=== PATIENT | female | born 1940 | race Caucasian/White ===

== ENCOUNTER 2024-11-10 17:32 | Inpatient (IN) ==
[2024-11-10] MEDS ORDERED: IOPAMIDOL 100 ML BOTTLE IV ONE (17:33)
[2024-11-10 18:31] LABS: Basophils # (Auto) 0.05 K/mcL (0.00-0.30); Basophils % (Auto) 0.6 % (0.0-2.0); Eosinophils # (Auto) 0.69 K/mcL (0.00-0.70); Eosinophils % (Auto) 7.6 % (0.0-7.0); Hematocrit 38.7 % (34.1-44.9); Hemoglobin 12.5 g/dL (11.2-15.7); Lymphocytes # (Auto) 1.53 K/mcL (1.50-4.80); Lymphocytes % (Auto) 16.9 % (15.5-49.0); Mean Corpuscular HGB Conc 32.3 g/dL (31.0-36.0); Monocytes # (Auto) 1.03 K/mcL (0.10-0.90); Monocytes % (Auto) 11.3 % (1.0-12.0); Neutrophils % (Auto) 63.3 % (38.0-78.0); Platelet Count 278 K/mcL (140-440); RBC 4.53 M/mcL (3.59-5.38); WBC 9.1 K/mcL (4.5-11.0)
[2024-11-10 18:38] LABS: Bilirubin,Urine Small mg/dL (Negative); Color,Urine Yellow; Glucose,Urine (UA) 100 mg/dL (Negative); Ketones,Urine Trace mg/dL (Negative); Leukocyte Esterase,Urine Trace /uL (Negative); Mucus,Urine Few /hpf; PH,Urine 6.0 (5.0-9.0); Protein,Urine 100 mg/dL (Negative); Specific Gravity,Urine 1.015 (1.000-1.035); Urobilinogen,Urine Normal
[2024-11-10 18:50] LABS: ALT/SGPT 10 U/L (<40); AST/SGOT 16 U/L (<32); Albumin 3.8 gm/dL (3.2-5.2); Albumin/Globulin Ratio 1.2 (1.0-2.3); Alkaline Phosphatase 85 U/L (39-117); Anion Gap 11.0 (8.0-16.0); Bilirubin,Total 0.3 mg/dL (0.1-1.0); Blood Urea Nitrogen 18 mg/dL (8-23); Calcium 9.2 mg/dL (8.6-10.4); Carbon Dioxide 22 mmol/L (22-30); Chloride 105 mmol/L (96-108); Globulin 3.1 gm/dL (2.2-3.7); Glucose 99 mg/dL (70-105); Potassium 3.5 mmol/L (3.3-5.1); Sodium 138 mmol/L (133-145)
[2024-11-10] MEDS: 0.9 % SODIUM CHLORIDE 1,000 ML IV ONE (18:53)
[2024-11-10] MEDS: cefTRIAXone 1 GM VIAL IV ONE (19:31)
[2024-11-10 19:35] LABS: Thyroid Stimulating Hormone 2.74 uIU/mL (0.27-5.01)
[2024-11-10] MEDS: AZITHROMYCIN 500 MG in 0.9 % SODIUM CHLORIDE 250 ML IV SCH (19:35)
[2024-11-10 21:05] LABS: C-Reactive Protein 5.86 mg/dL (0.03-0.80)
[2024-11-10 21:18] LABS: RBC Morphology NORMAL (Normal)
[2024-11-10] MEDS ORDERED: POTASSIUM CHLORIDE 40 MEQ in DEXTROSE 5% IN WATER 500 ML IV PRN (22:40)
[2024-11-10] MEDS ORDERED: POLYETHYLENE GLYCOL 3350 17 GM PACKET PO PRN (22:40)
[2024-11-10] MEDS ORDERED: ACETAMINOPHEN 325 MG TABLET PO PRN (22:40)
[2024-11-10] MEDS ORDERED: SENNOSIDES 1 TABLET PO PRN (22:40)
[2024-11-10] MEDS ORDERED: ONDANSETRON 4 MG/2 ML VIAL IV PRN (22:40)
[2024-11-10] MEDS ORDERED: IPRATROPIUM/ALBUTEROL 3 ML AMPUL.NEB NEB PRN (22:40)
[2024-11-10] MEDS ORDERED: POTASSIUM CHLORIDE 20 MEQ TABLET PO PRN ×2 (22:40)
[2024-11-10] MEDS ORDERED: METOCLOPRAMIDE 10 MG/2 ML VIAL IV PRN (22:40)
[2024-11-10] MEDS ORDERED: MAGNESIUM SULFATE 2 GM/50 ML BAG IV PRN (22:40)
[2024-11-11 00:02] LABS: Carcinoembryonic Antigen 4.4 ng/mL (<3.4)
[2024-11-11] MEDS: cefTRIAXone 1 GM VIAL IV SCH ×2 (01:23→16:53)
[2024-11-11] MEDS: 0.9 % SODIUM CHLORIDE 10 ML SYRINGE IV SCH (01:32)
[2024-11-11] MEDS: cefTRIAXone 1 GM VIAL ONE (01:33)
[2024-11-11 06:05] LABS: Basophils # (Auto) 0.08 K/mcL (0.00-0.30); Basophils % (Auto) 0.9 % (0.0-2.0); Eosinophils # (Auto) 0.72 K/mcL (0.00-0.70); Eosinophils % (Auto) 8.3 % (0.0-7.0); Hematocrit 37.1 % (34.1-44.9); Hemoglobin 12.0 g/dL (11.2-15.7); Lymphocytes # (Auto) 1.79 K/mcL (1.50-4.80); Lymphocytes % (Auto) 20.6 % (15.5-49.0); Mean Corpuscular HGB Conc 32.3 g/dL (31.0-36.0); Monocytes # (Auto) 1.15 K/mcL (0.10-0.90); Monocytes % (Auto) 13.3 % (1.0-12.0); Neutrophils % (Auto) 56.8 % (38.0-78.0); Platelet Count 280 K/mcL (140-440); RBC 4.31 M/mcL (3.59-5.38); WBC 8.7 K/mcL (4.5-11.0)
[2024-11-11 06:25] LABS: ALT/SGPT 9 U/L (<40); AST/SGOT 13 U/L (<32); Albumin 3.4 gm/dL (3.2-5.2); Albumin/Globulin Ratio 1.2 (1.0-2.3); Alkaline Phosphatase 75 U/L (39-117); Anion Gap 9.0 (8.0-16.0); Bilirubin,Direct < 0.2 mg/dL (0-0.3); Bilirubin,Total 0.3 mg/dL (0.1-1.0); Blood Urea Nitrogen 12 mg/dL (8-23); Calcium 8.6 mg/dL (8.6-10.4); Carbon Dioxide 22 mmol/L (22-30); Chloride 111 mmol/L (96-108); Globulin 2.8 gm/dL (2.2-3.7); Glucose 93 mg/dL (70-105); Phosphorous 3.2 mg/dL (2.5-4.5); Potassium 3.7 mmol/L (3.3-5.1); Sodium 142 mmol/L (133-145); Triglycerides 90 mg/dL (<150); Uric Acid 4.5 mg/dL (2.5-8.0)
[2024-11-11] MEDS ORDERED: IOPAMIDOL 100 ML BOTTLE IV ONE (08:57)
[2024-11-11] MEDS: APIXABAN 2.5 MG TABLET PO SCH (09:56)
[2024-11-11] MEDS: PANTOPRAZOLE 40 MG TABLET PO SCH (09:59)
[2024-11-11] MEDS: LACTOBACILLUS 1 CAPSULE PO SCH (10:00)
[2024-11-11] MEDS: LOSARTAN 50 MG TABLET PO SCH (10:00)
[2024-11-11] MEDS: MEMANTINE 10 MG TABLET PO SCH ×2 (10:00→20:10)
[2024-11-11] MEDS: DOCUSATE SODIUM 100 MG CAPSULE PO SCH (10:01)
[2024-11-11] MEDS: DONEPEZIL 10 MG TABLET PO SCH (10:01)
[2024-11-11] MEDS: CELECOXIB 200 MG CAPSULE PO PRN (20:05)
[2024-11-12 07:55] VITALS: TEMP 98.1; O2SAT 96
[2024-11-12] MEDS: PNEUMOCOCCAL 23-VAL P-SAC VAC 0.5 ML SYRINGE IM ONE (11:48)
== END 2024-11-12 11:20 | disposition home or self-care (01) | DRG 947 ==
LOC: ED 17:32 → MEDSUR 22:39
PROVIDERS: ADMIT Internal Medicine; ATTEND Internal Medicine